=== PATIENT | female | born 1985 | race Caucasian/White ===

== ENCOUNTER 2017-03-21 06:56 | Day surgery (SDC) | payer OTHER ==
[~2017-03-21 06:56] MED LIST: Acetaminophen/Cod #3 Tablet PO; Anaprox Ds 550mg TAB PO; CIPRO PO; IRON1TAB4 PO; PRENATAL CAPLE1 EACH PO; RHO D IMMUNE GLOBULIN IM; TYLENOL-CODEINE1 TAB PO
== END 2017-03-21 17:41 | disposition home or self-care (01) ==
LOC: CIR.AMB 06:56
DX: L72.0 Epidermal cyst (principal); L02.412 Cutaneous abscess of left axilla